=== PATIENT | male | born 1995 | race Caucasian/White ===

== ENCOUNTER 2019-09-30 09:37 | Outpatient (CLI) | payer OTHER, SELFPAY ==
--- NOTE | ~2019-09-30 | XR_ITS ---
XR foot RT 2V DATE: 09/30/2019 10:01 INDICATION: Right medial foot pain. Patient fell one week ago. TECHNIQUE: 4 views COMPARISON: None FINDINGS: Os tibiale externum, normal variant. No fracture, dislocation, periosteal reaction or bone destruction, erosive change or other significan t abnormality. IMPRESSION: Os tibiale externum, normal variant Reviewed, dictated and finalized at location B.
== END 2019-09-30 09:38 | disposition home or self-care (01) ==
LOC: ANHIMG 09:43
PROVIDERS: PCP Family Medicine; Visit Provider Nurse Practitioner Family
DX: M79.671 Pain in right foot (principal)
CPT/HCPCS: 73620

== ENCOUNTER 2020-06-01 16:02 | Outpatient (CLI) | payer OTHER, SELFPAY | END 2020-06-01 16:03 | disposition home or self-care (01) | LOC: ANHCOVIDVC 16:02 | PROVIDERS: PCP Family Medicine | DX: Z23 Encounter for immunization (principal) | CPT/HCPCS: 0001A; 91300 ==

== ENCOUNTER 2020-06-22 16:01 | Outpatient (CLI) | payer OTHER, SELFPAY | END 2020-06-22 16:02 | disposition home or self-care (01) | LOC: ANHCOVIDVC 16:02 | PROVIDERS: PCP Family Medicine | DX: Z23 Encounter for immunization (principal) | CPT/HCPCS: 0002A; 91300 ==